=== PATIENT | male | born 1950 | race Caucasian/White ===

== ENCOUNTER 2017-07-08 21:17 | Inpatient (IN) | payer MEDICARE, OTHER ==
[~2017-07-08] VITALS: Ht 167.6 cm; Wt 73.0 kg
[2017-07-08] MEDS ORDERED: VOLTAREN-XR100 MG PO (23:00)
[2017-07-08] MEDS ORDERED: PARACETAMOL (23:01)
[2017-07-08 23:08] LABS: BASOPHIL % 0.1 % (0-2); PLATELET COUNT 187 x10^3mcL (130-400)
[2017-07-08 23:11] LABS: CALCIUM 7.5 mg/dL (8.5-10.1); CARBON DIOXIDE 23.2 mmol/L (21-32); CREATININE SERUM 1.3 mg/dL (0.7-1.3); POTASSIUM SERUM 3.9 mmol/L (3.5-5.1)
[2017-07-08 23:16] LABS: ALBUMIN 2.5 g/dL (3.4-5.0); BILIRUBIN TOTAL 0.22 mg/dL (0.20-1.00); CHOLESTEROL/HDL RATIO 3.4; TOTAL PROTEIN, SERUM 6.3 g/dL (6.4-8.2)
[2017-07-08 23:25] LABS: RED CELL DISTRIBUTION WIDTH 18.8 % (11.5-14.5)
[2017-07-08 23:27] LABS: FREE T4 0.91 ng/dL (0.76-1.46); FREE THYROXINE INDEX 1.8 ug/dL (1.4-4.5); T4(THYROXINE) 5.2 ug/dL (4.7-13.3)
[2017-07-08 23:35] VITALS: BP 139/66
[2017-07-08 23:49] LABS: MAGNESIUM 2.2 mg/dL (1.8-2.4); PHOSPHOROUS 4.1 mg/dL (2.5-4.9)
[2017-07-08 23:50] LABS: T3 TOTAL 1.65 ng/mL
[2017-07-09 00:28] LABS: UA SPECIFIC GRAVITY 1.025 (1.005-1.035); microscopic required? YES; urine erythrocyte NEGATIVE (NEGATIVE)
[2017-07-09 08:55] LABS: BASOPHIL % 0.4 % (0-2); CALCIUM 7.9 mg/dL (8.5-10.1); CARBON DIOXIDE 27.5 mmol/L (21-32); CHLORIDE SERUM 112 mmol/L (98-107); CREATININE SERUM 1.1 mg/dL (0.7-1.3); GFR1 > 60 mL/min; MAGNESIUM 2.4 mg/dL (1.8-2.4); PLATELET COUNT 181 x10^3mcL (130-400); POTASSIUM SERUM 4.4 mmol/L (3.5-5.1); SODIUM SERUM 142 mmol/L (136-145)
[2017-07-09 08:56] LABS: TOTAL IRON BINDING CAPACITY 305 ug/dL (250-450)
[2017-07-09 09:49] LABS: IRON 30 ug/dL (65-170)
[2017-07-09 10:00] VITALS: BP 126/79
[2017-07-09 10:01] LABS: RED CELL DISTRIBUTION WIDTH 19.3 % (11.5-14.5)
[2017-07-09 11:13] LABS: GLUCOSE SERUM 83 mg/dL (74-106)
[2017-07-09 13:54] VITALS: BP 122/75
[2017-07-09 18:08] VITALS: BP 120/72
[2017-07-09 21:08] VITALS: BP 140/69
[2017-07-10 05:44] VITALS: BP 114/66
[2017-07-10 08:40] VITALS: BP 126/67
== END 2017-07-10 18:53 | disposition home or self-care (01) | DRG 562 ==
LOC: ED 21:17 → DU 22:43
PROVIDERS: Specialist; ADMIT Family Medicine
DX: S92.002A Unspecified fracture of left calcaneus, initial encounter for closed fracture (principal); N17.0 Acute kidney failure with tubular necrosis; E43 Unspecified severe protein-calorie malnutrition; S92.001A Unspecified fracture of right calcaneus, initial encounter for closed fracture; D50.9 Iron deficiency anemia, unspecified; E83.51 Hypocalcemia; E87.8 Other disorders of electrolyte and fluid balance, not elsewhere classified; W17.89XA Other fall from one level to another, initial encounter; Y93.89 Activity, other specified; Y92.89 Other specified places as the place of occurrence of the external cause; Z68.26 Body mass index [BMI] 26.0-26.9, adult
CPT/HCPCS: 83880; 84439; 97110-GP; 97530-GP; 97542-GP; J1644